=== PATIENT | female | born 1965 | race Two or more races ===

== ENCOUNTER 2023-04-07 21:30 | Inpatient (IN) | payer MEDICAID ==
[~2023-04-07] VITALS: Ht 165.1 cm; Wt 59.9 kg
[~2023-04-07 21:30] MED LIST: FOLI-130 PO; HYDR-4527 PO; METF-1211 PO; ONDA-104 PO; OXCA300T70 PO; THIA100T80 PO; TRAZ-252 PO
[2023-04-07 23:01] LABS: COVID AG,FIA SOURCE NASOPHARYNGEAL
[2023-04-08 02:19] LABS: AMPHET/METH SCREEN,URINE NEGATIVE (NEGATIVE); BARBITURATE SCREEN, URINE NEGATIVE (NEGATIVE); BENZODIAZEPINES SCREEN,URINE POSITIVE (NEGATIVE); CANNABINOID SCREEN,URINE NEGATIVE (NEGATIVE); COCAINE SCREEN,URINE NEGATIVE (NEGATIVE); METHADONE SCREEN, URINE NEGATIVE (NEGATIVE); OPIATE SCREEN,URINE NEGATIVE (NEGATIVE); PHENCYCLIDINE SCREEN,URINE NEGATIVE (NEGATIVE)
[2023-04-08] MEDS ORDERED: LORazepam 2 MG TABLET PO PRN (03:00)
[2023-04-08] MEDS ORDERED: MAG HYDROX/AL HYDROX/SIMETH ES 30 ML SUSPENSION UDCUP PO PRN ×2 (03:00→13:15)
[2023-04-08] MEDS ORDERED: TUBERCULIN, PURIFIED PROTEIN DERIVATIVE 5 TU/0.1 ML SYRINGE ID ONE (03:00)
[2023-04-08] MEDS ORDERED: HALOPERIDOL 5 MG TABLET PO PRN (03:00)
[2023-04-08] MEDS ORDERED: ZOLPIDEM TARTRATE 10 MG TABLET PO PRN (03:00)
[2023-04-08] MEDS ORDERED: ACETAMINOPHEN 325 MG TABLET PO PRN ×2 (03:00→13:15)
[2023-04-08 03:35] LABS: BASOPHILS % (AUTO) 3.2 % (0.0-2.0); EOSINOPHILS % (AUTO) 1.8 % (1.0-6.0); HEMATOCRIT 27.8 % (36-46); HEMOGLOBIN 8.7 g/dL (12.0-16.0); LYMPHOCYTES # (AUTO) 1.8 K/uL (1.0-4.8); LYMPHOCYTES % (AUTO) 47.2 % (22.0-44.0); MEAN CORPUSCULAR HEMOGLOBIN 25.4 pg (26.0-34.0); MEAN CORPUSCULAR HGB CONC 31.5 G/dL (31.0-37.0); MEAN CORPUSCULAR VOLUME 81 fL (80-100); MONOCYTES # (AUTO) 0.4 K/uL (0.1-1.0); MONOCYTES % (AUTO) 11.5 % (2.0-9.0); NEUTROPHILS # (AUTO) 1.4 K/uL (1.8-7.7); NEUTROPHILS % (AUTO) 36.3 % (40.0-70.0); PLATELET COUNT (AUTO) 310 K/uL (150-450); RED BLOOD CELL COUNT(AUTO) 3.45 MIL/uL (4.00-5.20); RED CELL DISTRIBUTION WIDTH 25.4 % (11.5-14.5)
[2023-04-08 03:51] LABS: ALANINE AMINOTRANSFERASE 17 U/L (12-78); ALBUMIN 2.5 g/dL (3.4-5.0); ALKALINE PHOSPHATASE 112 U/L (46-116); ANION GAP 11 mmol/L (8-16); ASPARTATE AMINOTRANSFERASE 29 U/L (15-37); BILIRUBIN,TOTAL 0.2 mg/dL (0.1-1.0); CALCIUM, TOTAL 7.8 mg/dL (8.8-10.5); CARBON DIOXIDE 26 mmol/L (22-29); CHLORIDE 104 mmol/L (98-107); CREATININE 0.58 mg/dL (0.60-1.30); GLOMERULAR FILTR. RATE CALC > 60 mL/min (>60); GLUCOSE,RANDOM 320 mg/dL (70-110); SODIUM SERUM 141 mmol/L (136-145); TOTAL PROTEIN, SERUM 6.8 g/dL (6.4-8.2)
[2023-04-08 03:57] LABS: POTASSIUM 2.9 mmol/L (3.5-5.1)
[2023-04-08] MEDS ORDERED: POTASSIUM CHLORIDE 20 MEQ ER TABLET PO ONE ×2 (04:00→12:00)
[2023-04-08 06:57] LABS: APPEARANCE,URINE CLEAR (CLEAR); BILIRUBIN,URINE NEGATIVE (NEGATIVE); GLUCOSE, URINE (UA) >=1000 mg/dL (NEGATIVE); KETONES,URINE NEGATIVE (NEGATIVE); LEUKOCYTE ESTERASE ,URINE NEGATIVE (NEGATIVE); NITRATE,URINE NEGATIVE (NEGATIVE); OCCULT BLOOD,URINE NEGATIVE (NEGATIVE); PROTEIN,URINE NEGATIVE (NEGATIVE); SPECIFIC GRAVITIY, URINE 1.021 (1.003-1.030); UROBILINOGEN,URINE <=1.0 mg/dL (<=1.0)
[2023-04-08 07:03] LABS: BACTERIA,URINE None Seen /HPF (None Seen); RBC,URINE None Seen /HPF (0-2); WBC,URINE None Seen /HPF (0-5)
[2023-04-08 07:04] LABS: SQUAMOUS EPITHELIAL CELL,UR Few /LPF (None Seen)
[2023-04-08 09:47] VITALS: BP 96/59; PULSE 109; RESP 17; TEMP 97.8
[2023-04-08] MEDS ORDERED: OXcarbazepine 300 MG TABLET PO SCH (13:00)
[2023-04-08] MEDS ORDERED: PETROLATUM,WHITE 28 GM JELLY TP PRN (13:15)
[2023-04-08] MEDS ORDERED: MAGNESIUM HYDROXIDE SUSPENSION 30 ML UDCUP PO PRN (13:15)
[2023-04-08] MEDS ORDERED: CloNIDine HCL 0.1 MG TABLET PO PRN (13:15)
[2023-04-08] MEDS ORDERED: IBUPROFEN 400 MG TABLET PO PRN (13:15)
[2023-04-08] MEDS ORDERED: GuaiFENesin/D-METHORPHAN [SUGAR-FREE] 200-20MG/10 ML SYRUP UDCUP PO PRN (13:15)
[2023-04-08] MEDS ORDERED: ONDANSETRON HCL 4 MG TABLET PO PRN (13:15)
[2023-04-08] MEDS ORDERED: LOPERAMIDE HCL 2 MG CAPSULE PO PRN (13:15)
[2023-04-08] MEDS ORDERED: DOCUSATE SODIUM 100 MG CAPSULE PO PRN (13:15)
[2023-04-08] MEDS ORDERED: ALBUTEROL SULFATE HFA 90 MCG/PUFF 8 GM INHALER IH PRN (13:15)
[2023-04-08] MEDS ORDERED: NICOTINE 14 MG/24 HOUR PATCH TD PRN (13:15)
[2023-04-08] MEDS: MetFORMIN HCL 500 MG TABLET PO SCH (17:19)
[2023-04-08] MEDS: OXcarbazepine 300 MG TABLET PO SCH (17:19)
[2023-04-08 17:33] LABS: GLUCOMETER DEV NAME(LOC) 3E.C
[2023-04-08 20:06] VITALS: BP 126/77; PULSE 84; RESP 18; TEMP 98.3
[2023-04-08] MEDS: TraZODone HCL 100 MG TABLET PO SCH (21:54)
[2023-04-09] MEDS: MetFORMIN HCL 500 MG TABLET PO SCH ×2 (06:32→16:45)
[2023-04-09 07:19] LABS: POTASSIUM 3.2 mmol/L (3.5-5.1)
[2023-04-09 07:26] LABS: GLUCOMETER DEV NAME(LOC) 3E.C
[2023-04-09 07:28] LABS: HEMOGLOBIN A1C 8.4 % (3.8-5.6)
[2023-04-09 09:34] VITALS: BP 121/57; PULSE 71; RESP 19; TEMP 97.4
[2023-04-09] MEDS: OXcarbazepine 300 MG TABLET PO SCH ×3 (09:37→16:45)
[2023-04-09] MEDS: FOLIC ACID 1 MG TABLET PO SCH (09:37)
[2023-04-09] MEDS: THIAMINE 100 MG TABLET PO SCH (09:38)
[2023-04-09] MEDS ORDERED: DEXTROSE 50%-WATER 25 GM/50 ML SYRINGE IVP PRN (17:00)
[2023-04-09 17:07] LABS: GLUCOMETER DEV NAME(LOC) 3E.I 2
[2023-04-09] MEDS: INSULIN LISPRO 100 UNITS/ML SQ PRN (17:25)
[2023-04-09 21:01] VITALS: BP 113/67; PULSE 92; RESP 19; TEMP 98.2
[2023-04-09] MEDS: TraZODone HCL 100 MG TABLET PO SCH (21:59)
[2023-04-10] MEDS: MetFORMIN HCL 500 MG TABLET PO SCH ×2 (06:35→17:45)
[2023-04-10] MEDS: INSULIN LISPRO 100 UNITS/ML SQ PRN ×2 (06:37→17:49)
[2023-04-10 07:21] LABS: GLUCOMETER DEV NAME(LOC) 3E.C
[2023-04-10 08:45] VITALS: BP 130/64; PULSE 95; RESP 17; TEMP 97.6
[2023-04-10] MEDS: THIAMINE 100 MG TABLET PO SCH (10:18)
[2023-04-10] MEDS: OXcarbazepine 300 MG TABLET PO SCH ×3 (10:18→17:46)
[2023-04-10] MEDS: FOLIC ACID 1 MG TABLET PO SCH (10:18)
[2023-04-10 11:59] LABS: GLUCOMETER DEV NAME(LOC) 3E.I 2
[2023-04-10 16:58] LABS: GLUCOMETER DEV NAME(LOC) 3E.I 2
[2023-04-10 20:29] VITALS: BP 124/76; PULSE 62; RESP 18; TEMP 98.1
[2023-04-10] MEDS: TraZODone HCL 100 MG TABLET PO SCH (21:13)
[2023-04-11 06:27] LABS: GLUCOMETER DEV NAME(LOC) 3E.C
[2023-04-11] MEDS: MetFORMIN HCL 500 MG TABLET PO SCH (07:06)
[2023-04-11] MEDS: INSULIN LISPRO 100 UNITS/ML SQ PRN (07:08)
[2023-04-11 08:35] VITALS: BP 140/73; PULSE 72; RESP 18; TEMP 97.4
[2023-04-11] MEDS: OXcarbazepine 300 MG TABLET PO SCH ×2 (09:14→13:05)
[2023-04-11] MEDS: THIAMINE 100 MG TABLET PO SCH (09:14)
[2023-04-11] MEDS: FOLIC ACID 1 MG TABLET PO SCH (09:15)
[2023-04-11] MEDS ORDERED: OXCA300T28 PO (11:51)
[2023-04-11] MEDS ORDERED: TRAZ-257 PO (11:51)
== END 2023-04-11 17:12 | disposition home or self-care (01) | DRG 751 ==
LOC: EMS 21:30 → 3EI 04-08 07:15
PROVIDERS: ADMIT Psychiatry & Neurology Child & Adolescent Psychiatry; ATTEND Psychiatry & Neurology Child & Adolescent Psychiatry
DX: F33.2 Major depressive disorder, recurrent severe without psychotic features (principal); R45.851 Suicidal ideations; E11.65 Type 2 diabetes mellitus with hyperglycemia; D64.9 Anemia, unspecified; D72.819 Decreased white blood cell count, unspecified; E78.00 Pure hypercholesterolemia, unspecified; E87.6 Hypokalemia; Z20.822 Contact with and (suspected) exposure to COVID-19; I10 Essential (primary) hypertension; F19.10 Other psychoactive substance abuse, uncomplicated; F10.20 Alcohol dependence, uncomplicated; Z98.84 Bariatric surgery status; Z98.891 History of uterine scar from previous surgery; Z79.899 Other long term (current) drug therapy; Z79.84 Long term (current) use of oral hypoglycemic drugs; Z88.0 Allergy status to penicillin; Z87.891 Personal history of nicotine dependence
CPT/HCPCS: 80053; 80307; 81001; 82962; 83036; 84132; 85025; 87081; 99285; G0480

== ENCOUNTER 2023-10-15 01:17 | Emergency (ER) | payer MEDICAID ==
[~2023-10-15] VITALS: Ht 165.1 cm; Wt 73.0 kg
[~2023-10-15 01:17] MED LIST changes: -HYDR-4527 PO; -ONDA-104 PO; +OXCA300T28 PO; -OXCA300T70 PO; -TRAZ-252 PO; +TRAZ-257 PO
[2023-10-15 02:18] LABS: COVID AG,FIA SOURCE NASAL SWAB
[2023-10-15 02:44] LABS: INFLUENZA TYPE A NEGATIVE FOR TYPE A (NEGATIVE); INFLUENZA TYPE B NEGATIVE FOR TYPE B (NEGATIVE); SARS-COV2 (COVID) ANTIGEN,FIA Negative (Negative)
[2023-10-15] MEDS ORDERED: 0.9% SODIUM CHLORIDE 10 ML SYRINGE IVP PRN (04:00)
[2023-10-15 05:00] VITALS: TEMP 99.7
[2023-10-15] MEDS ORDERED: HYDROCODONE/ACETAMINOPHEN 10-325 MG TABLET PO ONE (05:15)
[2023-10-15 05:36] LABS: APPEARANCE,URINE CLEAR (CLEAR); BILIRUBIN,URINE NEGATIVE (NEGATIVE); COLOR,URINE YELLOW (YELLOW); GLUCOSE, URINE (UA) >=1000 mg/dL (NEGATIVE); LEUKOCYTE ESTERASE ,URINE MODERATE (NEGATIVE); NITRATE,URINE POSITIVE (NEGATIVE); OCCULT BLOOD,URINE NEGATIVE (NEGATIVE); PROTEIN,URINE TRACE mg/dL (NEGATIVE); SPECIFIC GRAVITIY, URINE 1.013 (1.003-1.030)
[2023-10-15 05:36] LABS: BASOPHILS % (AUTO) 0.7 % (0.0-2.0); EOSINOPHILS % (AUTO) 0.7 % (1.0-6.0); HEMATOCRIT 29.5 % (36-46); HEMOGLOBIN 9.3 g/dL (12.0-16.0); LYMPHOCYTES # (AUTO) 2.2 K/uL (1.0-4.8); LYMPHOCYTES % (AUTO) 26.3 % (22.0-44.0); MEAN CORPUSCULAR HEMOGLOBIN 24.5 pg (26.0-34.0); MEAN CORPUSCULAR HGB CONC 31.5 G/dL (31.0-37.0); MEAN CORPUSCULAR VOLUME 78 fL (80-100); MONOCYTES % (AUTO) 11.8 % (2.0-9.0); NEUTROPHILS % (AUTO) 60.5 % (40.0-70.0); PLATELET COUNT (AUTO) 301 K/uL (150-450); RED BLOOD CELL COUNT(AUTO) 3.79 MIL/uL (4.00-5.20); RED CELL DISTRIBUTION WIDTH 21.9 % (11.5-14.5); WHITE BLOOD COUNT (AUTO) 8.3 K/uL (4.5-11.0)
[2023-10-15 05:45] LABS: ANION GAP 13 mmol/L (8-16); CALCIUM, TOTAL 9.1 mg/dL (8.8-10.5); CARBON DIOXIDE 24 mmol/L (22-29); CHLORIDE 94 mmol/L (98-107); CREATININE 0.57 mg/dL (0.60-1.30); GLOMERULAR FILTR. RATE CALC > 60 mL/min (>60); GLUCOSE,RANDOM 204 mg/dL (70-110); POTASSIUM 3.7 mmol/L (3.5-5.1); SODIUM SERUM 131 mmol/L (136-145); UREA NITROGEN, BLOOD 7 mg/dL (7-18)
[2023-10-15 05:48] LABS: BACTERIA,URINE Many /HPF (None Seen); RBC,URINE None Seen /HPF (0-2); SQUAMOUS EPITHELIAL CELL,UR None Seen /LPF (None Seen)
[2023-10-15 05:50] LABS: ALANINE AMINOTRANSFERASE 30 U/L (12-78); ALBUMIN 2.8 g/dL (3.4-5.0); ALKALINE PHOSPHATASE 235 U/L (46-116); ASPARTATE AMINOTRANSFERASE 33 U/L (15-37); BILIRUBIN,TOTAL 0.3 mg/dL (0.1-1.0); TOTAL PROTEIN, SERUM 7.8 g/dL (6.4-8.2)
[2023-10-15 05:53] LABS: LACTIC ACID 1.1 mmol/L (0.4-2.0)
[2023-10-15] MEDS ORDERED: LEVOFLOXACIN 750 MG/D5% WATER 150 ML IV ONE (07:00)
[2023-10-15 08:35] VITALS: BP 120/87; PULSE 85; RESP 14
== END 2023-10-15 08:59 | disposition home or self-care (01) ==
LOC: EMS 01:18
DX: N39.0 Urinary tract infection, site not specified (principal); R50.9 Fever, unspecified; E11.9 Type 2 diabetes mellitus without complications; F41.9 Anxiety disorder, unspecified; F32.A Depression, unspecified; E78.00 Pure hypercholesterolemia, unspecified; F17.210 Nicotine dependence, cigarettes, uncomplicated; Z87.440 Personal history of urinary (tract) infections; Z88.0 Allergy status to penicillin; Z20.822 Contact with and (suspected) exposure to COVID-19; Z98.890 Other specified postprocedural states
CPT/HCPCS: 99285; 96365; 71045; 87426; 80053; 81001; 83605; 85025; 87040; 87804; 87086; 87186; 93005; 84145; 36415; J1956